=== PATIENT | female | born 1985 | race Two or more races ===

== ENCOUNTER 2020-02-01 14:25 | Emergency (ER) | payer MEDICAID ==
[~2020-02-01] VITALS: Ht 165.1 cm; Wt 69.0 kg
[2020-02-01] MEDS ORDERED: ONDANSETRON HCL 4MG/2ML INJ IV STA (15:01)
[2020-02-01] MEDS ORDERED: SODIUM CHLORIDE 0.9% 1,000 ML IV ONE (15:01)
[2020-02-01] MEDS ORDERED: MORPHINE SULFATE 4 MG/ML CPJ (NOT FOR IM USE) IV STA (15:01)
[2020-02-01 15:24] LABS: CLARITY URINE CLEAR (CLEAR); COLOR URINE YELLOW (YELLOW); KETONES URINE 2+ (NEGATIVE); LEUKOCYTE ESTERASE URINE TRACE (NEGATIVE); NITRITE URINE NEGATIVE (NEGATIVE); OCCULT BLOOD URINE NEGATIVE (NEGATIVE); PH URINE 6.5 (4.5-8.0); PROTEIN URINE NEGATIVE (NEGATIVE); SPECIFIC GRAVITY URINE 1.024 (1.005-1.030); UROBILINOGEN URINE 0.2 E.U./dL (0.2-1.0)
[2020-02-01 15:29] LABS: HEMATOCRIT. 33.1 % (36.0-48.0); HEMOGLOBIN. 10.5 g/dL (12.0-16.0); MEAN CORPUSCULAR HEMOGLOBIN 24.9 pg (28.0-32.0); MEAN CORPUSCULAR VOLUME 78.2 fL (81.0-99.0); MEAN PLATELET VOLUME 8.6 fl (7.4-10.4); PLATELET 249 x1000/uL (130-400); RED BLOOD CELL COUNT 4.23 mill/uL (4.2-5.4); RED CELL DISTRIBUTION WIDTH 21.7 % (11.6-14.6)
[2020-02-01 15:35] LABS: CHLORIDE 106 mEq/L (98-107)
[2020-02-01 15:38] LABS: INR 0.9; PROTHROMBIN TIME 10.1 sec (9.6-11.0)
[2020-02-01 15:39] LABS: ETHANOL BLOOD < 10 mg/dL
[2020-02-01 15:44] LABS: HCG SCREEN NEGATIVE
[2020-02-01 16:03] LABS: *AMPHETAMINES SCREEN URINE NEGATIVE (NEGATIVE); *BARBITURATES SCREEN URINE NEGATIVE (NEGATIVE); *BENZODIAZEPINES SCREEN URINE NEGATIVE (NEGATIVE)
[2020-02-01 16:04] LABS: *COCAINE SCREEN URINE NEGATIVE (NEGATIVE); METHADONE URINE SCREEN NEGATIVE (NEGATIVE); OPIATES URINE SCREEN NEGATIVE (NEGATIVE); PHENCYCLIDINE URINE SCREEN NEGATIVE (NEGATIVE)
[2020-02-01 16:05] LABS: CANNABINOID URINE SCREEN PRESUMTIVE POSITIVE (NEGATIVE)
[2020-02-01] MEDS ORDERED: MORPHINE SULFATE 4 MG/ML CPJ (NOT FOR IM USE) IV ONE (17:00)
[2020-02-01] MEDS ORDERED: ONDANSETRON HCL 4MG/2ML INJ IV ONE (17:00)
[2020-02-01 17:42] LABS: PLATELET ESTIMATE NORMAL
[2020-02-01] MEDS ORDERED: MORPHINE SULFATE 10 MG/ML CPJ IV ONE (18:00)
[2020-02-01 19:30] VITALS: BP 113/50
[2020-02-01] MEDS ORDERED: IOHEXOL-300 100 ML BOTTLE ONE (20:25)
== END 2020-02-01 20:10 | disposition short-term general hospital (02) ==
LOC: ER 14:48
DX: S29.9XXA Unspecified injury of thorax, initial encounter (principal); S39.91XA Unspecified injury of abdomen, initial encounter; Z88.1 Allergy status to other antibiotic agents; X58.XXXA Exposure to other specified factors, initial encounter; Y93.89 Activity, other specified; Y92.89 Other specified places as the place of occurrence of the external cause; Y99.8 Other external cause status
CPT/HCPCS: 36415; 71045; 71260; 74177; 80053; 80305; 80320; 81003; 83690; 84484; 84703; 85025; 85610; 86850; 86900; 86901; 93005; 96374; 96375; 96376; 99285; J2270; J2405; J7030; Q9967; G0480